=== PATIENT | female | born 1960 | race Caucasian/White ===

== ENCOUNTER 2020-03-20 12:03 | Outpatient (REF) | payer OTHER, SELFPAY | END 2020-03-20 12:04 | disposition home or self-care (01) | LOC: HO.HAP 12:03 | PROVIDERS: Visit Provider Internal Medicine | DX: H90.3 Sensorineural hearing loss, bilateral (principal); Z46.1 Encounter for fitting and adjustment of hearing aid | CPT/HCPCS: 99499; V5266 ==

== ENCOUNTER 2020-04-19 12:11 | Outpatient (REF) | payer OTHER, SELFPAY | END 2020-04-19 12:12 | disposition home or self-care (01) | LOC: HO.LAB 12:11 | PROVIDERS: PCP Internal Medicine; Visit Provider Internal Medicine | DX: Z20.822 Contact with and (suspected) exposure to COVID-19 (principal) | CPT/HCPCS: 36415; C9803; U0003 ==

== ENCOUNTER 2020-07-11 14:10 | Outpatient (REF) | payer OTHER, SELFPAY | END 2020-07-11 14:11 | disposition home or self-care (01) | LOC: HO.HAP 14:10 | PROVIDERS: Visit Provider Internal Medicine | DX: Z46.1 Encounter for fitting and adjustment of hearing aid (principal) | CPT/HCPCS: V5266 ==

== ENCOUNTER 2020-09-27 15:01 | Outpatient (REF) | payer OTHER, SELFPAY | END 2020-09-27 15:02 | disposition home or self-care (01) | LOC: HO.HAP 15:01 | PROVIDERS: Visit Provider Internal Medicine | DX: Z46.1 Encounter for fitting and adjustment of hearing aid (principal); H90.3 Sensorineural hearing loss, bilateral | CPT/HCPCS: V5266 ==

== ENCOUNTER 2020-12-20 15:50 | Outpatient (REF) | payer OTHER, SELFPAY | END 2020-12-20 15:51 | disposition home or self-care (01) | LOC: HO.HAP 15:50 | PROVIDERS: Visit Provider Internal Medicine | DX: Z46.1 Encounter for fitting and adjustment of hearing aid (principal); H90.3 Sensorineural hearing loss, bilateral | CPT/HCPCS: V5266 ==

== ENCOUNTER 2021-03-07 09:01 | Outpatient (REF) | payer OTHER, SELFPAY | END 2021-03-07 09:02 | disposition home or self-care (01) | LOC: HO.HAP 09:01 | PROVIDERS: Visit Provider Internal Medicine | DX: Z46.1 Encounter for fitting and adjustment of hearing aid (principal); H90.3 Sensorineural hearing loss, bilateral | CPT/HCPCS: V5266 ==

== ENCOUNTER 2021-11-14 11:12 | Outpatient (REF) | payer MEDICARE, SELFPAY ==
--- NOTE | ~2021-11-14 | XR_ITS ---
EXAMINATION: XR AP STANDING VIEW KNEES, BILATERAL XR SUNRISE AND LATERAL VIEWS OF THE RIGHT KNEE CLINICAL INFORMATION: Right knee pain COMPARISON: 10/26/2021 TECHNIQUE: AP standing view of both knees and lateral and sunrise views of the right knee. FINDINGS: AP standing views of both knees do not demonstrate any evidence of acute fracture or dislocation. The medial and lateral knee joint spaces appear maintained bilaterally. Lateral and sunrise views of the right knee demonstrate a small effusion which is improved since prior outside study of 10/26/2021. There is degenerative change of the patellofemoral joint with marginal spurring and some questionED narrowing about the lateral facet. XR/XR knee RT 2V IMPRESSION: Small right knee effusion with patellofemoral joint degenerative change.
--- NOTE | ~2021-11-14 | XR_ITS ---
EXAMINATION: XR AP STANDING VIEW KNEES, BILATERAL XR SUNRISE AND LATERAL VIEWS OF THE RIGHT KNEE CLINICAL INFORMATION: Right knee pain COMPARISON: 10/26/2021 TECHNIQUE: AP standing view of both knees and lateral and sunrise views of the right knee. FINDINGS: AP standing views of both knees do not demonstrate any evidence of acute fracture or dislocation. The medial and lateral knee joint spaces appear maintained bilaterally. Lateral and sunrise views of the right knee demonstrate a small effusion which is improved since prior outside study of 10/26/2021. There is degenerative change of the patellofemoral joint with marginal spurring and some questionED narrowing about the lateral facet. XR/XR knee standing BI IMPRESSION: Small right knee effusion with patellofemoral joint degenerative change.
== END 2021-11-14 11:13 | disposition home or self-care (01) ==
LOC: HO.HOSX 11:12
PROVIDERS: Visit Provider Physician Assistant
DX: M25.561 Pain in right knee (principal); M25.562 Pain in left knee; S80.01XA Contusion of right knee, initial encounter; W17.89XA Other fall from one level to another, initial encounter; Y93.9 Activity, unspecified; Y92.9 Unspecified place or not applicable; Y99.9 Unspecified external cause status
CPT/HCPCS: 73560; 73565; 99202